=== PATIENT | female | born 1970 | race Caucasian/White ===

== ENCOUNTER 2018-04-22 03:14 | Observation (INO) ==
[2018-04-22] MEDS ORDERED: *HR* LORazepam 2 MG/ML VIAL IVP ONE (06:28)
[2018-04-22] MEDS ORDERED: *HR* Promethazine 25 MG/ML VIAL IVP PRN (06:31)
[2018-04-22] MEDS ORDERED: diazePAM 10 MG/2 ML SYRINGE IVP PRN (06:31)
[2018-04-22] MEDS ORDERED: *HR* LORazepam 2 MG/ML VIAL IVP PRN ×2 (06:31→09:15)
[2018-04-22 06:40] LABS: Basophils # 0.1 K/mcL (0.0-0.2); Basophils % 0.7 %; Hematocrit 39.3 % (35.3-44.9); Hemoglobin 14.1 g/dL (11.5-15.4); Immature Granulocytes % 0.1 % (0-4); Lymphocytes % 13.4 %; Mean Corpuscular HGB Conc 35.9 g/dL (31.6-35.5); Mean Corpuscular Hemoglobin 32.5 pg (28.0-33.3); Mean Corpuscular Volume 90.6 fL (83.0-100.0); Mean Platelet Volume 9.7 fL (9.4-12.4); Monocytes # 0.9 K/mcL (0.0-1.3); Monocytes % 12.2 %; Neutrophils # 5.5 K/mcL (1.6-8.9); Platelet Count 217 K/mcL (140-400); Red Blood Count 4.34 M/mcL (3.82-4.97); Red Cell Distribution Width 11.9 % (11.5-14.5); Segmented Neutrophils % 73.6 %
--- NOTE | 2018-04-22 06:40 | Internal Med History&Physical ---
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 She states that she frequently drinks about 15 cans of beer a day and her last drink was yesterday at noon at which time she had to stop because of the gastrointestinal symptoms. She says that the vomiting was profuse enough to now caused soreness in her upper abdomen but did not notice any blood in the content. Over there she received some sedating medications as well as anti- emetics and is transferred here for further management. On my assessment she is lying in bed but notably anxious and is concerned about her shakiness. She admits to having being hospitalized previously on multiple occasions for alcohol withdrawal but states that she has not had a seizure in many years and therefore is not on any antiepileptic medications. Past Med Surg Social Fam HX - Past Medical History Medical history: arthritis, GERD, seizures Psychiatric history: anxiety, depression - Past Surgical History Additional surgical history: tubal - Social History Smoking Status: Never smoker Smokeless Tobacco Status: No Alcohol use: recent Drug use: none Internal Medicine - H&P: Meds Allergy/AdvReac Type Severity Reaction Status Date / Time phenytoin [From Dilantin] Allergy Rash Verified 04/22/18 06:28 [place]'s Wort Allergy Hives Verified 04/22/18 06:29 Leuprolide [From Lupron] AdvReac Depression Verified 04/22/18 06:30 All Systems PM: A 10-system review of systems was performed and is negative for pertinent findings except as documented above in the HPI. Family history reviewed and found noncontributory. - Constitutional Exam: Vitals: Reviewed General: Shaky, anxious. Skin: Flushed, warm, dry. HEENT: Dry oral mucous membranes. No conjunctivae pallor. Neck: No lymphadenopathy. No JVD. No carotid bruits. No palpable thyroid. Chest: Normal thoracic expansion. Normal breath sounds. Clear to auscultation. Heart: Normal S1 & S2; rhythmic. No rubs or murmurs. Abdomen: Non-distended, soft and non-tender to palpation. No peritoneal reaction. Extremities: No clubbing, cyanosis or edema. No calf tenderness. Normal distal pulses. Neurological: Awake, alert and oriented to person, place and time. No focal deficits. Psych: Affect appropriate. - Assessment and plan (1) Alcohol withdrawal Current Visit: Yes Status: Acute Assessment and plan: Seemingly uncomplicated at this time but with high risk of progression to a highly hyperactive state. Will give 1 dose of lorazepam now and continue with a symptom-triggered approach at varying doses based on CIWA scale. Frequent neurochecks and fall/aspiration precautions. Banana bag ordered and to follow with continuos hydration with IV LR. Check electrolytes and supplement accordingly. consult placed for counseling services provision. Qualifiers: Complication of substance-induced condition: uncomplicated Qualified Code(s): F10.230 - Alcohol dependence with withdrawal, uncomplicated (2) Seizure disorder Current Visit: Yes Status: Acute Assessment and plan: Not on AEDs as she has been seizure free. Will place on seizure precautions. Benzos prn. (3) HTN (hypertension) Current Visit: Yes Status: Acute Assessment and plan: Continue metoprolol 50mg BID; await home med reconciliation for other medications she may be on. Qualifiers: Hypertension type: essential hypertension Qualified Code(s): I10 - Essential (primary) hypertension (4) Mood disorder Current Visit: Yes Status: Acute Assessment and plan: Continue sertraline 100mg daily. - Time Spent With Patient Total time spent is greater than 50% in coordination of care (as documented) at patient's floor/unit and/or counseling patient: Greater than 35 minutes
[2018-04-22 06:48] LABS: INR 1.1; Prothrombin Time 12.4 Seconds (9.4-12.1)
[2018-04-22 06:50] LABS: Activated Partial Thrombo Time 29.4 Seconds (26.0-36.0)
[2018-04-22 07:01] LABS: Alanine Aminotransferase 228 Units/L (7-52); Albumin 4.5 g/dL (3.5-5.7); Albumin/Globulin Ratio 1.9 (1.1-2.2); Alkaline Phosphatase 105 Units/L (34-104); Aspartate Amino Transferase 547 Units/L (13-39); BUN/Creatinine Ratio 4 (6-26); Bilirubin,Direct 0.7 mg/dL (0.0-0.2); Bilirubin,Indirect 0.8 mg/dL (0.0-1.2); Bilirubin,Total 1.5 mg/dL (0.3-1.0); Blood Urea Nitrogen 2 mg/dL (6-20); Calcium 8.8 mg/dL (8.6-10.3); Carbon Dioxide 23 mEq/L (23-29); Chloride 101 mEq/L (98-107); Ethanol < 10 mg/dL (Less than 10); Globulin 2.4 g/dL (2.4-3.5); Glucose 141 mg/dL (70-105); Lipase 27 Units/L (11-82); Osmolality,Calculated 279 (280-300); Phosphorous 1.3 mg/dL (2.7-4.5); Potassium 3.3 mEq/L (3.5-5.1); Sodium 135 mEq/L (136-145); Total Protein 6.9 g/dL (6.4-8.9); eGFR For Non-African Americans > 60 (> 60)
[2018-04-22] MEDS ORDERED: Thiamine (B-1) 100 MG in D5% in Water 50 ML IVPB STA (07:38)
[2018-04-22 07:58] LABS: Amphetamine Screen,Urine Negative ng/mL (Cutoff=1000); Barbiturate Screen,Urine Negative ng/mL (Cutoff=200)
[2018-04-22 08:02] LABS: Benzodiazepines Screen,Urine Positive ng/mL (Cutoff=300); Cannabinoid Screen,Urine Negative ng/mL (Cutoff = 50); Cocaine Screen,Urine Negative ng/mL (Cutoff= 300); Opiate Screen,Urine Positive ng/mL (Cutoff=300); Phencyclidine Screen,Urine Negative ng/mL (Cutoff=25)
[2018-04-22] MEDS: Ringers Solution, Lactated 1,000 ML IVC SCH ×3 (08:33→23:37)
[2018-04-22] MEDS: *HR* LORazepam 2 MG/ML VIAL IVP PRN ×3 (08:35→20:03)
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
[2018-04-22] MEDS: Ondansetron 4 MG/2 ML VIAL IVP PRN ×2 (11:46→21:10)
[2018-04-22] MEDS: *HR* Heparin 5,000 UNIT/ML VIAL SQ SCH ×2 (14:08→21:09)
[2018-04-22] MEDS ORDERED: Thiamine (B-1) 100 MG, Folic Acid 1 MG, MVI, adult with vitamin K 10 ML in 0.9 % Sodi... IVPB SCH (18:00)
[2018-04-22] MEDS: traZODone 50 MG TABLET PO PRN (22:26)
[2018-04-23] MEDS: *HR* Heparin 5,000 UNIT/ML VIAL SQ SCH ×3 (06:25→21:42)
[2018-04-23 06:43] LABS: Hematocrit 34.6 % (35.3-44.9); Mean Corpuscular HGB Conc 35.3 g/dL (31.6-35.5); Mean Corpuscular Hemoglobin 32.3 pg (28.0-33.3); Mean Corpuscular Volume 91.5 fL (83.0-100.0); Mean Platelet Volume 9.7 fL (9.4-12.4); Platelet Count 164 K/mcL (140-400); Red Blood Count 3.78 M/mcL (3.82-4.97)
[2018-04-23 06:50] LABS: Hemoglobin 12.2 g/dL (11.5-15.4)
[2018-04-23 07:00] LABS: Alanine Aminotransferase 175 Units/L (7-52); Albumin 4.2 g/dL (3.5-5.7); Albumin/Globulin Ratio 1.9 (1.1-2.2); Alkaline Phosphatase 100 Units/L (34-104); Aspartate Amino Transferase 360 Units/L (13-39); BUN/Creatinine Ratio 4 (6-26); Bilirubin,Total 2.2 mg/dL (0.3-1.0); Blood Urea Nitrogen 2 mg/dL (6-20); Calcium 8.9 mg/dL (8.6-10.3); Carbon Dioxide 26 mEq/L (23-29); Chloride 101 mEq/L (98-107); Globulin 2.2 g/dL (2.4-3.5); Glucose 96 mg/dL (70-105); Magnesium 1.5 mg/dL (1.6-2.6); Osmolality,Calculated 282 (280-300); Potassium 2.8 mEq/L (3.5-5.1); Sodium 138 mEq/L (136-145); Total Protein 6.4 g/dL (6.4-8.9); eGFR For Non-African Americans > 60 (> 60)
[2018-04-23] MEDS ORDERED: Potassium Chloride 40 MEQ, Lidocaine 1% 2 ML in D5% in Water 500 ML IVPB ONE (07:24)
[2018-04-23] MEDS: *HR* LORazepam 2 MG/ML VIAL IVP PRN ×3 (08:27→21:46)
[2018-04-23] MEDS ORDERED: Ibuprofen 200 MG TABLET PO ONE (08:38)
[2018-04-23] MEDS: Thiamine (B-1) 100 MG, Folic Acid 1 MG, MVI, adult with vitamin K 10 ML in 0.9 % Sodi... IVPB SCH (08:58)
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
[2018-04-23] MEDS: Ondansetron 4 MG/2 ML VIAL IVP PRN (16:17)
[2018-04-23] MEDS: Folic Acid 1 MG TABLET PO SCH (16:18)
[2018-04-23 21:44] LABS: Magnesium 1.7 mg/dL (1.6-2.6); Potassium 3.3 mEq/L (3.5-5.1)
[2018-04-23] MEDS: traZODone 50 MG TABLET PO PRN (22:59)
[2018-04-24] MEDS: *HR* LORazepam 2 MG/ML VIAL IVP PRN ×2 (01:47→05:45)
[2018-04-24 05:12] LABS: Alanine Aminotransferase 138 Units/L (7-52); Albumin 4.3 g/dL (3.5-5.7); Albumin/Globulin Ratio 1.7 (1.1-2.2); Alkaline Phosphatase 85 Units/L (34-104); Aspartate Amino Transferase 196 Units/L (13-39); BUN/Creatinine Ratio 8 (6-26); Bilirubin,Total 1.8 mg/dL (0.3-1.0); Blood Urea Nitrogen 4 mg/dL (6-20); Calcium 9.2 mg/dL (8.6-10.3); Carbon Dioxide 23 mEq/L (23-29); Chloride 104 mEq/L (98-107); Globulin 2.5 g/dL (2.4-3.5); Glucose 97 mg/dL (70-105); Magnesium 1.8 mg/dL (1.6-2.6); Osmolality,Calculated 283 (280-300); Phosphorous 3.4 mg/dL (2.7-4.5); Potassium 3.4 mEq/L (3.5-5.1); Sodium 138 mEq/L (136-145); Total Protein 6.8 g/dL (6.4-8.9); eGFR For Non-African Americans > 60 (> 60)
[2018-04-24 05:33] LABS: Hepatitis B Surface Antibody 22.23 mIU/mL
[2018-04-24] MEDS: *HR* Heparin 5,000 UNIT/ML VIAL SQ SCH ×3 (05:39→22:17)
[2018-04-24 05:44] LABS: Hepatitis B Surface Antigen Nonreactive (Nonreactive)
[2018-04-24 06:13] LABS: Hepatitis A Antibody IgM Nonreactive (Nonreactive); Hepatitis B Core IgM Nonreactive (Nonreactive); Hepatitis C Virus Antibody Nonreactive (Nonreactive)
[2018-04-24] MEDS: Thiamine (B-1) 100 MG TABLET PO SCH (07:50)
[2018-04-24] MEDS: Folic Acid 1 MG TABLET PO SCH (07:50)
[2018-04-24] MEDS: Thiamine (B-1) 100 MG, Folic Acid 1 MG, MVI, adult with vitamin K 10 ML in 0.9 % Sodi... IVPB SCH (07:50)
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
[2018-04-24] MEDS ORDERED: *HR* LORazepam 2 MG/ML VIAL IVP ONE (15:45)
[2018-04-24 16:13] LABS: Adenovirus F 40/41 PCR Not detected (Not detect); Astrovirus PCR Not detected (Not detect); C.difficile Toxin A/B Gene PCR Not detected (Not detect); Campylobacter by PCR Not detected (Not detect); Cryptosporidium by PCR Not detected (Not detect); Cyclospora cayetanensis PCR Not detected (Not detect); E. coli O157 by PCR Not detected (Not detect); Entamoeba histolytica PCR Not detected (Not detect); Enteroaggregative E.coli(EAEC) Not detected (Not detect); Enteropathogenic E.coli(EPEC) Not detected (Not detect); Enterotoxigenic E.coli (ETEC) Not detected (Not detect); Giardia lamblia PCR Not detected (Not detect); Norovirus GI/GII PCR Not detected (Not detect); Plesiomonas shigelloides PCR Not detected (Not detect); Rotavirus A PCR Not detected (Not detect); Salmonella PCR Not detected (Not detect); Sapovirus PCR Not detected (Not detect); Shig/EnteroinvasiveE coli EIEC Not detected (Not detect); Shigalike tox-prod E coli STEC Not detected (Not detect); Vibrio PCR Not detected (Not detect); Vibrio cholerae PCR Not detected (Not detect); Yersinia enterocolitica PCR Not detected (Not detect)
[2018-04-24] MEDS: traZODone 50 MG TABLET PO PRN (22:17)
[2018-04-25] MEDS: *HR* LORazepam 2 MG/ML VIAL IVP PRN (00:39)
[2018-04-25 04:45] LABS: Hematocrit 37.5 % (35.3-44.9); Hemoglobin 13.1 g/dL (11.5-15.4); Mean Corpuscular HGB Conc 34.9 g/dL (31.6-35.5); Mean Corpuscular Hemoglobin 32.5 pg (28.0-33.3); Mean Corpuscular Volume 93.1 fL (83.0-100.0); Mean Platelet Volume 10.5 fL (9.4-12.4); Platelet Count 172 K/mcL (140-400); Red Blood Count 4.03 M/mcL (3.82-4.97); Red Cell Distribution Width 11.8 % (11.5-14.5)
[2018-04-25 05:05] LABS: Alanine Aminotransferase 100 Units/L (7-52); Albumin 4.4 g/dL (3.5-5.7); Albumin/Globulin Ratio 1.8 (1.1-2.2); Alkaline Phosphatase 96 Units/L (34-104); Aspartate Amino Transferase 99 Units/L (13-39); BUN/Creatinine Ratio 16 (6-26); Bilirubin,Total 1.1 mg/dL (0.3-1.0); Blood Urea Nitrogen 8 mg/dL (6-20); Calcium 9.9 mg/dL (8.6-10.3); Carbon Dioxide 26 mEq/L (23-29); Chloride 102 mEq/L (98-107); Globulin 2.5 g/dL (2.4-3.5); Glucose 99 mg/dL (70-105); Osmolality,Calculated 282 (280-300); Potassium 3.3 mEq/L (3.5-5.1); Sodium 137 mEq/L (136-145); Total Protein 6.9 g/dL (6.4-8.9); eGFR For Non-African Americans > 60 (> 60)
[2018-04-25] MEDS: *HR* Heparin 5,000 UNIT/ML VIAL SQ SCH (05:38)
[2018-04-25 06:57] VITALS: BP 160/89
[2018-04-25] MEDS: Folic Acid 1 MG TABLET PO SCH (09:09)
[2018-04-25] MEDS: Thiamine (B-1) 100 MG TABLET PO SCH (09:10)
--- NOTE | 2018-04-25 10:17 | Discharge Summary ---
- NOTES TO OUTPATIENT PROVIDER Notes to Outpatient Provider: Patient was admitted for EtOH withdrawal and alcoholic hepatitis. Managed conservatively with CIWA protocol. SHe states that she was under a lot of stress from family-related issues and had been using more Ativan than what she was prescribed. Her next refill is due on 04/29 and will be discharged on 5 tabs of PO Ativan 0.5mg BID PRN to bridge the gap. She was noted to have self-limiting diarrhea for which C. diff and GI panel was done -> both were negative for infectious etiology. Orders not resulted at time of discharge: Pending orders 04/26/18 04:00 CMP [Comprehensive Metabolic Panel] AM 0400 Complete Blood Count w/o Diff [HEME] AM 0400 04/27/18 04:00 CMP [Comprehensive Metabolic Panel] AM 0400 Complete Blood Count w/o Diff [HEME] AM 0400 04/28/18 04:00 CMP [Comprehensive Metabolic Panel] AM 0400 Complete Blood Count w/o Diff [HEME] AM 0400 04/29/18 04:00 CMP [Comprehensive Metabolic Panel] AM 0400 Complete Blood Count w/o Diff [HEME] AM 0400 Date of Encounter: 04/25/18 Time of Encounter: 07:45 - Discharge Diagnosis (1) Alcohol withdrawal Priority: Primary Status: Acute Qualifiers: Complication of substance-induced condition: uncomplicated Qualified Code(s): F10.230 - Alcohol dependence with withdrawal, uncomplicated (2) Seizure disorder Priority: Secondary Status: Acute (3) HTN (hypertension) Priority: Secondary Status: Acute Qualifiers: Hypertension type: essential hypertension Qualified Code(s): I10 - Essential (primary) hypertension (4) Mood disorder Priority: Secondary Status: Acute (5) Hypomagnesemia Priority: Secondary Status: Acute (6) Hypophosphatemia Priority: Secondary Status: Acute (7) Hypokalemia Priority: Secondary Status: Acute (8) Alcoholic hepatitis Priority: Secondary Status: Acute Qualifiers: Ascites presence: without ascites Qualified Code(s): K70.10 - Alcoholic hepatitis without ascites (9) Alcohol use disorder Priority: Secondary Status: Acute (10) DVT prophylaxis Priority: Secondary Status: Acute (11) Loose stools Priority: Secondary Status: Acute Hospital course: Ms. Trotter is a 47 year old female was admitted for EtOH withdrawal and alcoholic hepatitis. Managed conservatively with CIWA protocol. SHe states that she was under a lot of stress from family-related issues and had been using more Ativan than what she was prescribed. Her next refill is due on 04/29 and will be discharged on 5 tabs of PO Ativan 0.5mg BID PRN to bridge the gap. She was noted to have self-limiting diarrhea for which C. diff and GI panel was done -> both were negative for infectious etiology. Discharge discussed with: patient, nurse - Time Spent with Patient Total time spent providing and/or coordinating discharge services: 32 mins - Discharge Medications Prescriptions: LORazepam [Ativan] 0.5 mg PO BID PRN 3 Days #6 tablet PRN Reason: Anxiety Potassium Chloride 10 meq PO DAILY 7 Days #7 tab.er.prt Home Medications: Flaxseed/Omega3,6,9/Fatty Acid [Flax Seed Oil 1,300 mg Softgel] 1 cap PO DAILY 04/22/18 [History] Angle Root [Angle] 250 mg PO DAILY 04/22/18 [History] Loratadine [Allergy Relief] 10 mg PO DAILY 04/22/18 [History] Methocarbamol [Robaxin] 375 mg PO TID PRN 04/22/18 [History] Metoprolol Tartrate 50 mg PO BID 04/22/18 [History] Non-Formulary Medication 1 tab PO DAILY 04/22/18 [History] [place]-3/Dha/Epa/Fish Oil [Fish Oil 1,000 mg Softgel] 1 cap PO DAILY 04/22/18 [History] Omeprazole Magnesium [Prilosec Otc] 20 mg PO DAILY 04/22/18 [History] Oxycodone HCl [Roxybond] 5 mg PO BID PRN 04/22/18 [History] Promethazine [Phenergan] 25 mg PO TID PRN 04/22/18 [History] Sertraline [Zoloft] 100 mg PO HS 04/22/18 [History] Vitamin B Complex [B Complex] 1 tab PO DAILY 04/22/18 [History] traZODone [TraZODone] 50 - 100 mg PO HS PRN 04/22/18 [History] LORazepam [Ativan] 0.5 mg PO BID PRN 3 Days #6 tablet 04/25/18 [Rx] Potassium Chloride 10 meq PO DAILY 7 Days #7 tab.er.prt 04/25/18 [Rx] Allergies/Adverse Reactions: Allergy/AdvReac Type Severity Reaction Status Date / Time phenytoin [From Dilantin] Allergy "FINE FULL Verified 04/22/18 08:55 BODY RASH" [place]'s Wort Allergy Hives Verified 04/22/18 08:55 acetaminophen [From Tylenol] AdvReac See Verified 04/22/18 09:12 Comments iron AdvReac See Verified 04/22/18 09:12 Comments Leuprolide [From Lupron] AdvReac "LOOSE MY Verified 04/22/18 08:55 MIND" Date of admission: 04/22/18 06:02 Primary care physician: PCP NONE Consults: 04/22/18 06:31 Consult to Clerical Adviser [CONS] Routine Reason for SW Consult: alcoholic patient requesting counseling services. - Constitutional Vitals: Temp Pulse Resp BP Pulse Ox 98.2 F 92 17 160/89 97 04/25/18 06:56 04/25/18 06:56 04/25/18 06:56 04/25/18 06:56 04/25/18 08:15 Exam: General: No acute distress, not tremulous Lungs: Clear to auscultation bilaterally, no wheezing no crackles CV: Regular rate and rhythm S1 and S2 no murmurs appreciated Abdoemn: soft, nontender, nondistended. could not appreciate organomegaly MSK: Moving all extremities, no edema or calf tenderness Neuro: alert and oriented 3, No focal deficits - Patient Status Disposition: Home, Self-Care Condition: Fair Functional capacity at discharge: independent ambulation Overall status at discharge: patient is progressing back to baseline - Discharge Instructions Follow Up With: NONE,PCP [Primary Care Provider] - Additional Instructions: Short course of PO Ativan provided for her to bridge the gap between her refill dates - Diet and Activity Activity: resume usual activities as tolerated Diet: regular diet
[2018-04-25] MEDS ORDERED: *HR* LORazepam 0.5 MG TABLET PO ONE (12:42)
== END 2018-04-25 13:51 | disposition home or self-care (01) ==
LOC: 3ANU → SUATTDRO 06:02
PROVIDERS: ADMIT Internal Medicine; ATTEND Internal Medicine

== ENCOUNTER 2019-11-14 15:23 | Observation (INO) ==
[2019-11-14] MEDS ORDERED: 0.9 % Sodium Chloride 1,000 ML IVC ONE (15:41)
[2019-11-14] MEDS ORDERED: Isovue-370 500 ML BOTTLE IVP ONE (16:03)
[2019-11-14 16:30] LABS: Basophils # 0.1 K/mcL (0.0-0.2); Basophils % 1.2 %; Eosinophils % 0.2 %; Hematocrit 43.5 % (35.3-44.9); Hemoglobin 15.1 g/dL (11.5-15.4); Immature Granulocytes % 0.2 % (0-4); Lymphocytes # 0.9 K/mcL (0.6-4.6); Lymphocytes % 16.9 %; Mean Corpuscular HGB Conc 34.7 g/dL (31.6-35.5); Mean Corpuscular Hemoglobin 31.1 pg (28.0-33.3); Mean Corpuscular Volume 89.7 fL (83.0-100.0); Mean Platelet Volume 10.1 fL (9.4-12.4); Monocytes # 0.6 K/mcL (0.0-1.3); Monocytes % 12.6 %; Neutrophils # 3.5 K/mcL (1.6-8.9); Platelet Count 253 K/mcL (140-400); Red Blood Count 4.85 M/mcL (3.82-4.97); Segmented Neutrophils % 68.9 %; White Blood Count 5.1 K/mcL (4.3-11.1)
[2019-11-14 16:34] LABS: INR 1.2; Prothrombin Time 14.1 Seconds (9.4-12.1)
[2019-11-14] MEDS ORDERED: *HR* LORazepam 2 MG/ML VIAL IVP ONE (16:39)
[2019-11-14 17:38] LABS: Alanine Aminotransferase 104 Units/L (7-52); Albumin 4.3 g/dL (3.5-5.7); Albumin/Globulin Ratio 1.7 (1.1-2.2); Alkaline Phosphatase 195 Units/L (34-104); Aspartate Amino Transferase 295 Units/L (13-39); BUN/Creatinine Ratio 7 (6-26); Bilirubin,Total 1.5 mg/dL (0.3-1.0); Blood Urea Nitrogen 5 mg/dL (6-20); Calcium 9.3 mg/dL (8.6-10.3); Carbon Dioxide 29 mEq/L (23-29); Chloride 92 mEq/L (98-107); Ethanol 17 mg/dL (Less than 10); Globulin 2.5 g/dL (2.4-3.5); Glucose 110 mg/dL (70-105); Lipase 21 Units/L (11-82); Magnesium 1.6 mg/dL (1.6-2.6); Osmolality,Calculated 276 (280-300); Phosphorous 4.2 mg/dL (2.7-4.5); Sodium 134 mEq/L (136-145); Total Protein 6.8 g/dL (6.4-8.9); Troponin I < 0.03 ng/mL (< 0.04); eGFR For African Americans > 60 (> 60); eGFR For Non-African Americans > 60 (> 60)
[2019-11-14] MEDS ORDERED: Thiamine (B-1) 100 MG, Folic Acid 1 MG, MVI, adult with vitamin K 10 ML in 0.9 % Sodi... IVPB ONE (17:41)
[2019-11-14] MEDS ORDERED: Ondansetron 4 MG/2 ML VIAL IVP ONE (18:26)
[2019-11-14] MEDS ORDERED: Naloxone 0.4 MG/ML INJ IVP PRN (19:09)
[2019-11-14] MEDS ORDERED: Ondansetron 4 MG/2 ML VIAL IVP PRN (19:09)
[2019-11-14] MEDS ORDERED: *HR* LORazepam 2 MG/ML VIAL IVP PRN ×3 (19:16)
[2019-11-14] MEDS: Ketorolac 15 MG/ML VIAL IVP PRN (22:31)
[2019-11-14] MEDS ORDERED: 0.9 % Sodium Chloride 1,000 ML IVC SCH (22:45)
[2019-11-15 02:58] LABS: Alanine Aminotransferase 87 Units/L (7-52); Albumin 3.1 g/dL (3.5-5.7); Albumin/Globulin Ratio 1.6 (1.1-2.2); Alkaline Phosphatase 117 Units/L (34-104); Aspartate Amino Transferase 258 Units/L (13-39); BUN/Creatinine Ratio 7 (6-26); Bilirubin,Total 1.3 mg/dL (0.3-1.0); Blood Urea Nitrogen 5 mg/dL (6-20); Calcium 7.6 mg/dL (8.6-10.3); Carbon Dioxide 25 mEq/L (23-29); Chloride 100 mEq/L (98-107); Globulin 1.9 g/dL (2.4-3.5); Glucose 79 mg/dL (70-105); Magnesium 1.3 mg/dL (1.6-2.6); Osmolality,Calculated 282 (280-300); Phosphorous 3.2 mg/dL (2.7-4.5); Potassium 3.2 mEq/L (3.5-5.1); Sodium 138 mEq/L (136-145); eGFR For African Americans > 60 (> 60); eGFR For Non-African Americans > 60 (> 60)
[2019-11-15 03:11] LABS: Hematocrit 34.7 % (35.3-44.9); Lymphocytes # 1.1 K/mcL (0.6-4.6); Lymphocytes % 26.9 %; Mean Corpuscular HGB Conc 33.7 g/dL (31.6-35.5); Mean Corpuscular Hemoglobin 30.5 pg (28.0-33.3); Mean Corpuscular Volume 90.6 fL (83.0-100.0); Mean Platelet Volume 10.2 fL (9.4-12.4); Monocytes # 0.5 K/mcL (0.0-1.3); Monocytes % 11.3 %; Neutrophils # 2.4 K/mcL (1.6-8.9); Platelet Count 167 K/mcL (140-400); Red Blood Count 3.83 M/mcL (3.82-4.97); Red Cell Distribution Width 14.2 % (11.5-14.5); Segmented Neutrophils % 59.8 %
[2019-11-15 03:16] LABS: Hemoglobin 11.7 g/dL (11.5-15.4)
[2019-11-15] MEDS ORDERED: Ringers Solution, Lactated 1,000 ML IVC SCH (07:30)
[2019-11-15] MEDS ORDERED: Loratadine 10 MG TABLET PO SCH (09:00)
[2019-11-15] MEDS ORDERED: Vitamin B Complex/Vit C/Vit E 1 EACH TABLET PO SCH (09:00)
[2019-11-15] MEDS ORDERED: *HR* LORazepam 0.5 MG TABLET PO ONE (10:22)
[2019-11-15] MEDS: Ketorolac 15 MG/ML VIAL IVP PRN (10:27)
[2019-11-15 11:57] VITALS: BP 144/80
[2019-11-15] MEDS ORDERED: Thiamine (B-1) 100 MG, Folic Acid 1 MG, MVI, adult with vitamin K 10 ML in 0.9 % Sodi... IVPB SCH (18:00)
== END 2019-11-15 13:59 | disposition home or self-care (01) ==
LOC: 2ANU 15:23 → EMEROOARM 15:23 → SUATTDRO 19:02 → 2ANU 19:55
PROVIDERS: ADMIT Internal Medicine; ATTEND Internal Medicine

== ENCOUNTER 2020-07-23 14:56 | Observation (INO) ==
[2020-07-23] MEDS ORDERED: Ondansetron 4 MG/2 ML VIAL IVP ONE (15:41)
[2020-07-23] MEDS ORDERED: 0.9 % Sodium Chloride 1,000 ML IVC ONE (15:41)
[2020-07-23] MEDS ORDERED: Ketorolac 15 MG/ML VIAL IVP ONE (15:42)
[2020-07-23 16:28] LABS: Bacteria,Urine Few per hpf (None-Few); Bilirubin,Urine Negative (Negative); Blood,Urine Trace (Negative); Clarity,Urine Clear (Clear); Color,Urine Yellow (Yellow); Glucose,Urine (UA) Normal (Normal); Hyaline Casts,Urine Few per lpf (None Seen); Ketones,Urine 40 mg/dL (Negative); Leukocyte Esterase,Urine Negative (Negative); Mucus,Urine Few per lpf (None-Few); Nitrite,Urine Negative (Negative); Protein,Urine 50 mg/dL (Neg-Trace); RBC,Urine 0-3 per hpf (0-3); Specific Gravity,Urine 1.018 (1.010-1.025); Urobilinogen,Urine Normal (Normal)
[2020-07-23 16:51] LABS: Immature Granulocytes % 0.2 % (0-4)
[2020-07-23 16:52] LABS: Alanine Aminotransferase 71 Units/L (7-52); Albumin 5.2 g/dL (3.5-5.7); Albumin/Globulin Ratio 1.9 (1.1-2.2); Alkaline Phosphatase 127 Units/L (34-104); Aspartate Amino Transferase 221 Units/L (13-39); BUN/Creatinine Ratio 9 (6-26); Bilirubin,Total 1.7 mg/dL (0.3-1.0); Blood Urea Nitrogen 4 mg/dL (6-20); Calcium 9.7 mg/dL (8.6-10.3); Carbon Dioxide 24 mEq/L (23-29); Chloride 69 mEq/L (98-107); Globulin 2.7 g/dL (2.4-3.5); Glucose 97 mg/dL (70-105); Lipase 15 Units/L (11-82); Osmolality,Calculated 229 (280-300); Potassium 3.2 mEq/L (3.5-5.1); Sodium 111 mEq/L (136-145); Total Protein 7.9 g/dL (6.4-8.9); eGFR For African Americans > 60 (> 60); eGFR For Non-African Americans > 60 (> 60)
[2020-07-23 16:53] LABS: Basophils % 0.1 %; Hematocrit 37.6 % (35.3-44.9); Hemoglobin 14.4 g/dL (11.5-15.4); Lymphocytes # 0.7 K/mcL (0.6-4.6); Lymphocytes % 8.5 %; Mean Corpuscular Hemoglobin 35.5 pg (28.0-33.3); Mean Corpuscular Volume 92.6 fL (83.0-100.0); Mean Platelet Volume 10.5 fL (9.4-12.4); Monocytes # 0.9 K/mcL (0.0-1.3); Monocytes % 10.9 %; Neutrophils # 6.9 K/mcL (1.6-8.9); Platelet Count 199 K/mcL (140-400); Red Blood Count 4.06 M/mcL (3.82-4.97); Red Cell Distribution Width 11.5 % (11.5-14.5); Segmented Neutrophils % 80.3 %; White Blood Count 8.6 K/mcL (4.3-11.1)
[2020-07-23 17:08] LABS: Mean Corpuscular HGB Conc 38.3 g/dL (31.6-35.5)
[2020-07-23 17:25] LABS: Platelet Estimate Normal (Normal)
[2020-07-23] MEDS ORDERED: Thiamine (B-1) 100 MG in 0.9 % Sodium Chloride 50 ML IVPB STA (17:47)
[2020-07-23 18:04] LABS: Ethanol 63 mg/dL (Less than 10)
[2020-07-23] MEDS ORDERED: *HR* LORazepam 2 MG/ML VIAL IVP PRN ×2 (18:09)
[2020-07-23] MEDS ORDERED: Ondansetron 4 MG/2 ML VIAL IVP PRN (18:17)
[2020-07-23 18:50] LABS: Amphetamine Screen,Urine Negative ng/mL (Cutoff=1000); Barbiturate Screen,Urine Negative ng/mL (Cutoff=200); Benzodiazepines Screen,Urine Negative ng/mL (Cutoff=200); Cannabinoid Screen,Urine Negative ng/mL (Cutoff = 50); Cocaine Screen,Urine Negative ng/mL (Cutoff= 300); Opiate Screen,Urine Negative ng/mL (Cutoff=300); Phencyclidine Screen,Urine Negative ng/mL (Cutoff=25)
[2020-07-23] MEDS ORDERED: Naloxone 0.4 MG/ML INJ IVP PRN (19:31)
[2020-07-23] MEDS ORDERED: Potassium Chloride 40 MEQ, Lidocaine 1% 2 ML in 0.9 % Sodium Chloride 500 ML IVPB ONE (19:35)
[2020-07-23] MEDS: *HR* LORazepam 2 MG/ML VIAL IVP PRN (19:36)
[2020-07-23 20:31] LABS: BUN/Creatinine Ratio 9 (6-26); Blood Urea Nitrogen 4 mg/dL (6-20); Calcium 9.3 mg/dL (8.6-10.3); Carbon Dioxide 24 mEq/L (23-29); Chloride 72 mEq/L (98-107); Glucose 96 mg/dL (70-105); Osmolality,Calculated 233 (280-300); Sodium 113 mEq/L (136-145); eGFR For African Americans > 60 (> 60); eGFR For Non-African Americans > 60 (> 60)
[2020-07-23] MEDS ORDERED: *HR* OxyCODONE Immed Rel 5 MG TABLET PO PRN (20:54)
[2020-07-23] MEDS: *HR* LORazepam 2 MG/ML VIAL IVP SCH (21:18)
[2020-07-23 23:27] LABS: BUN/Creatinine Ratio 9 (6-26); Blood Urea Nitrogen 4 mg/dL (6-20); Calcium 8.9 mg/dL (8.6-10.3); Carbon Dioxide 24 mEq/L (23-29); Chloride 75 mEq/L (98-107); Glucose 101 mg/dL (70-105); Osmolality,Calculated 233 (280-300); Potassium 2.9 mEq/L (3.5-5.1); Sodium 113 mEq/L (136-145); eGFR For African Americans > 60 (> 60); eGFR For Non-African Americans > 60 (> 60)
[2020-07-24] MEDS: *HR* LORazepam 2 MG/ML VIAL IVP PRN ×2 (00:40→23:23)
[2020-07-24 02:46] LABS: Basophils % 0.4 %; Eosinophils % 0.2 %; Hemoglobin 13.8 g/dL (11.5-15.4); Immature Granulocytes % 0.7 % (0-4); Lymphocytes % 22.7 %; Mean Corpuscular Hemoglobin 34.2 pg (28.0-33.3); Mean Corpuscular Volume 91.6 fL (83.0-100.0); Mean Platelet Volume 10.4 fL (9.4-12.4); Monocytes # 0.5 K/mcL (0.0-1.3); Neutrophils # 2.9 K/mcL (1.6-8.9); Platelet Count 159 K/mcL (140-400); Red Blood Count 4.04 M/mcL (3.82-4.97); Red Cell Distribution Width 11.6 % (11.5-14.5); White Blood Count 4.5 K/mcL (4.3-11.1)
[2020-07-24 02:51] LABS: Prothrombin Time 11.9 Seconds (9.4-12.1)
[2020-07-24 02:53] LABS: Mean Corpuscular HGB Conc 37.3 g/dL (31.6-35.5)
[2020-07-24 03:01] LABS: Albumin 4.3 g/dL (3.5-5.7); Bilirubin,Direct 0.5 mg/dL (0.0-0.2); Bilirubin,Indirect 1.3 mg/dL (0.0-1.0); Bilirubin,Total 1.8 mg/dL (0.3-1.0); Globulin 2.2 g/dL (2.4-3.5); Total Protein 6.5 g/dL (6.4-8.9)
[2020-07-24 03:04] LABS: BUN/Creatinine Ratio 8 (6-26); Blood Urea Nitrogen 4 mg/dL (6-20); Calcium 8.6 mg/dL (8.6-10.3); Carbon Dioxide 25 mEq/L (23-29); Chloride 80 mEq/L (98-107); Glucose 125 mg/dL (70-105); Magnesium 2.1 mg/dL (1.6-2.6); Osmolality,Calculated 240 (280-300); Potassium 3.1 mEq/L (3.5-5.1); Sodium 116 mEq/L (136-145); eGFR For African Americans > 60 (> 60); eGFR For Non-African Americans > 60 (> 60)
[2020-07-24 06:47] LABS: BUN/Creatinine Ratio 10 (6-26); Blood Urea Nitrogen 4 mg/dL (6-20); Calcium 9.2 mg/dL (8.6-10.3); Carbon Dioxide 27 mEq/L (23-29); Chloride 87 mEq/L (98-107); Glucose 96 mg/dL (70-105); Osmolality,Calculated 255 (280-300); Potassium 2.9 mEq/L (3.5-5.1); Sodium 124 mEq/L (136-145); eGFR For African Americans > 60 (> 60); eGFR For Non-African Americans > 60 (> 60)
[2020-07-24] MEDS ORDERED: Potassium Chloride 40 MEQ, Lidocaine 1% 2 ML in 0.9 % Sodium Chloride 500 ML IVPB ONE (07:37)
[2020-07-24] MEDS: Thiamine (B-1) 100 MG TABLET PO SCH (08:03)
[2020-07-24] MEDS: Folic Acid 1 MG TABLET PO SCH (08:03)
[2020-07-24] MEDS: Vitamin B Complex/Vit C/Vit E 1 EACH TABLET PO SCH (08:03)
[2020-07-24] MEDS: *HR* LORazepam 2 MG/ML VIAL IVP SCH ×2 (08:04→15:08)
[2020-07-24] MEDS ORDERED: Potassium Chloride 40 MEQ, Lidocaine 1% 2 ML in D5% in Water 500 ML IVPB ONE (08:06)
[2020-07-24] MEDS: Metoprolol 100 MG TABLET PO SCH ×2 (08:42→19:56)
[2020-07-24] MEDS ORDERED: methocarbamoL 750 MG TABLET PO PRN (10:43)
[2020-07-24 10:50] LABS: BUN/Creatinine Ratio 8 (6-26); Blood Urea Nitrogen 4 mg/dL (6-20); Calcium 9.1 mg/dL (8.6-10.3); Carbon Dioxide 27 mEq/L (23-29); Chloride 87 mEq/L (98-107); Glucose 161 mg/dL (70-105); Osmolality,Calculated 256 (280-300); Potassium 3.6 mEq/L (3.5-5.1); Sodium 123 mEq/L (136-145); eGFR For African Americans > 60 (> 60); eGFR For Non-African Americans > 60 (> 60)
[2020-07-24 15:46] LABS: BUN/Creatinine Ratio 8 (6-26); Blood Urea Nitrogen 4 mg/dL (6-20); Calcium 9.7 mg/dL (8.6-10.3); Carbon Dioxide 24 mEq/L (23-29); Chloride 91 mEq/L (98-107); Glucose 137 mg/dL (70-105); Osmolality,Calculated 259 (280-300); Potassium 4.1 mEq/L (3.5-5.1); Sodium 125 mEq/L (136-145); eGFR For African Americans > 60 (> 60); eGFR For Non-African Americans > 60 (> 60)
[2020-07-24 16:04] LABS: Hepatitis B Surface Antigen Nonreactive (Nonreactive)
[2020-07-24 16:33] LABS: Hepatitis B Core IgM Nonreactive (Nonreactive); Hepatitis C Virus Antibody Nonreactive (Nonreactive)
[2020-07-24 16:35] LABS: Hepatitis A Antibody IgM Nonreactive (Nonreactive)
[2020-07-24] MEDS: *HR* Heparin 5,000 UNIT/ML VIAL SQ SCH (17:04)
[2020-07-24 18:22] LABS: BUN/Creatinine Ratio 8 (6-26); Blood Urea Nitrogen 4 mg/dL (6-20); Calcium 9.7 mg/dL (8.6-10.3); Carbon Dioxide 24 mEq/L (23-29); Chloride 92 mEq/L (98-107); Glucose 120 mg/dL (70-105); Osmolality,Calculated 258 (280-300); Potassium 3.8 mEq/L (3.5-5.1); Sodium 125 mEq/L (136-145); eGFR For African Americans > 60 (> 60); eGFR For Non-African Americans > 60 (> 60)
[2020-07-24] MEDS: *HR* LORazepam 0.5 MG TABLET PO SCH (19:56)
[2020-07-24 22:53] LABS: BUN/Creatinine Ratio 10 (6-26); Blood Urea Nitrogen 6 mg/dL (6-20); Calcium 9.3 mg/dL (8.6-10.3); Carbon Dioxide 26 mEq/L (23-29); Chloride 90 mEq/L (98-107); Glucose 95 mg/dL (70-105); Osmolality,Calculated 253 (280-300); Sodium 123 mEq/L (136-145); eGFR For African Americans > 60 (> 60); eGFR For Non-African Americans > 60 (> 60)
[2020-07-25 03:44] LABS: BUN/Creatinine Ratio 13 (6-26); Blood Urea Nitrogen 6 mg/dL (6-20); Calcium 9.8 mg/dL (8.6-10.3); Carbon Dioxide 25 mEq/L (23-29); Chloride 92 mEq/L (98-107); Glucose 117 mg/dL (70-105); Osmolality,Calculated 263 (280-300); Potassium 3.4 mEq/L (3.5-5.1); Sodium 127 mEq/L (136-145); eGFR For African Americans > 60 (> 60); eGFR For Non-African Americans > 60 (> 60)
[2020-07-25] MEDS: *HR* Heparin 5,000 UNIT/ML VIAL SQ SCH ×2 (05:57→18:25)
[2020-07-25] MEDS: *HR* LORazepam 0.5 MG TABLET PO SCH ×3 (08:14→20:00)
[2020-07-25] MEDS: Loratadine 10 MG TABLET PO SCH (08:14)
[2020-07-25] MEDS: Vitamin B Complex/Vit C/Vit E 1 EACH TABLET PO SCH (08:14)
[2020-07-25] MEDS: Metoprolol 100 MG TABLET PO SCH ×2 (08:14→20:00)
[2020-07-25] MEDS: Thiamine (B-1) 100 MG TABLET PO SCH (08:14)
[2020-07-25] MEDS: Folic Acid 1 MG TABLET PO SCH (08:15)
[2020-07-25] MEDS ORDERED: VITAMIN B COMPLEX PO SCH (09:00)
[2020-07-25] MEDS: (Vilazodone Hcl [Viibryd] 20 MG Tablet) PO SCH (09:08)
[2020-07-25] MEDS ORDERED: *HR* LORazepam 2 MG/ML VIAL IVP ONE (21:11)
[2020-07-26 03:45] LABS: Basophils % 0.9 %; Eosinophils # 0.1 K/mcL (0.0-0.6); Eosinophils % 1.6 %; Hematocrit 36.6 % (35.3-44.9); Hemoglobin 12.7 g/dL (11.5-15.4); Immature Granulocytes % 0.4 % (0-4); Lymphocytes # 1.6 K/mcL (0.6-4.6); Lymphocytes % 34.5 %; Mean Corpuscular HGB Conc 34.7 g/dL (31.6-35.5); Mean Corpuscular Hemoglobin 33.7 pg (28.0-33.3); Mean Corpuscular Volume 97.1 fL (83.0-100.0); Mean Platelet Volume 10.3 fL (9.4-12.4); Monocytes # 0.6 K/mcL (0.0-1.3); Monocytes % 13.4 %; Neutrophils # 2.2 K/mcL (1.6-8.9); Platelet Count 159 K/mcL (140-400); Red Blood Count 3.77 M/mcL (3.82-4.97); Red Cell Distribution Width 11.4 % (11.5-14.5); Segmented Neutrophils % 49.2 %; White Blood Count 4.5 K/mcL (4.3-11.1)
[2020-07-26 04:04] LABS: Alanine Aminotransferase 40 Units/L (7-52); Albumin 4.5 g/dL (3.5-5.7); Albumin/Globulin Ratio 1.6 (1.1-2.2); Alkaline Phosphatase 97 Units/L (34-104); Aspartate Amino Transferase 66 Units/L (13-39); BUN/Creatinine Ratio 20 (6-26); Blood Urea Nitrogen 9 mg/dL (6-20); Calcium 10.1 mg/dL (8.6-10.3); Carbon Dioxide 24 mEq/L (23-29); Chloride 95 mEq/L (98-107); Globulin 2.8 g/dL (2.4-3.5); Glucose 110 mg/dL (70-105); Osmolality,Calculated 265 (280-300); Potassium 3.9 mEq/L (3.5-5.1); Sodium 128 mEq/L (136-145); Total Protein 7.3 g/dL (6.4-8.9); eGFR For African Americans > 60 (> 60); eGFR For Non-African Americans > 60 (> 60)
[2020-07-26] MEDS: *HR* Heparin 5,000 UNIT/ML VIAL SQ SCH (05:30)
[2020-07-26] MEDS ORDERED: 0.9 % Sodium Chloride 500 ML IV ONE (05:34)
[2020-07-26] MEDS: (Vilazodone Hcl [Viibryd] 20 MG Tablet) PO SCH (07:27)
[2020-07-26] MEDS: Folic Acid 1 MG TABLET PO SCH (07:27)
[2020-07-26] MEDS: Thiamine (B-1) 100 MG TABLET PO SCH (07:27)
[2020-07-26] MEDS: *HR* LORazepam 0.5 MG TABLET PO SCH (07:27)
[2020-07-26] MEDS: Metoprolol 100 MG TABLET PO SCH (07:27)
[2020-07-26] MEDS: Vitamin B Complex/Vit C/Vit E 1 EACH TABLET PO SCH (07:27)
[2020-07-26] MEDS: Loratadine 10 MG TABLET PO SCH (07:27)
[2020-07-26] MEDS ORDERED: Thiamine (B-1) 100 MG TABLET PO SCH (09:00)
[2020-07-26 15:20] VITALS: BP 152/96
[2020-07-27] MEDS ORDERED: MULTIVITAMIN PO SCH (09:00)
[2020-07-27] MEDS ORDERED: Losartan/HCTZ 50-12.5 TABLET PO SCH (09:00)
== END 2020-07-26 16:41 | disposition home or self-care (01) ==
LOC: 2NNU 14:56 → EMEROOARM 14:56 → SUATTDRO 19:13 → 2NNU 20:20 → 3ANU 07-25 08:57
PROVIDERS: ADMIT Pharmacist; ATTEND General Practice